=== PATIENT | male | born 1970 | race African-American/Black ===

== ENCOUNTER 2021-03-02 09:46 | Emergency (ER) | payer OTHER ==
--- NOTE | 2021-03-02 10:16 | EDM.PDOC ---
ED HPI GENERAL MEDICAL PROBLEM - General Chief Complaint: Abdominal Pain Stated Complaint: HIGH BP/ABDOMINAL PAIN/SOB Time Seen by Provider: 03/02/21 10:14 Source of Information: Reports: Patient History Limitations: Reports: No Limitations - History of Present Illness INITIAL COMMENTS - FREE TEXT/NARRATIVE: 50-year-old male presents to the ED not feeling well since having the [employer]J COVID- 19 vaccination 4 days ago. He feels mildly short of breath but feels marked abdominal bloating and distention with need to burp and belch to get any discomfort. Not passing air per rectum near as regularly as normal. He did have a small formed bowel movement without blood last evening. He denies drinking alcohol recently he quit several months ago. He stopped smoking couple months ago as well. He was seen at the walk-in clinic and identified to have a markedly elevated blood pressure and this was part of the reason for having to attend the ED as well. He reports he used to be on blood pressure medications but stopped them about 8 months ago. He denies cough or sputum production. He did not ever have COVID-19 diagnosed. Denies fever or chills. His right arm ached for a day after having the [employer] given. No previous abdominal surgery. Onset: Gradual Onset Date: 03/01/21 Duration: Day(s):, Getting Worse Location: Reports: Abdomen (Diffuse abdominal bloat with occasional sharp stabbing) Quality: Reports: Ache (, cramping pains.), Sharp, Stabbing, Other (Colicky component to the pain.) Improves with: Reports: None ( Is mostly periumbilical.) Worsens with: Reports: Other Context: Denies: Activity (Worsens if he tries to eat or drink much.), Exercise, Lifting, Sick Contact, Trauma, Other Associated Symptoms: Reports: Shortness of Breath. Denies: Confusion, Chest Pain, Cough, cough w sputum, Diaphoresis, Fever/Chills, Headaches, Loss of Appetite, Malaise, Nausea/Vomiting, Rash, Seizure, Syncope, Weakness Treatments ORTHOPAEDIC SURGEON: Reports: Other (see below) (None.) Abdomen Pain Score (Numeric/FACES): 4 - Related Data Allergies Allergy/AdvReac Type Severity Reaction Status Date / Time No Known Allergies Allergy Verified 03/02/21 09:59 Home Meds: Home Meds Furosemide [Lasix] 40 mg PO DAILY #30 tablet 03/02/21 [Rx] Valsartan [Diovan] 320 mg PO DAILY #30 tablet 03/02/21 [Rx] amLODIPine Besylate [Amlodipine Besylate] 10 mg PO DAILY #30 tablet 03/02/21 [Rx] Past Medical History - Past Health History Medical/Surgical History: Denies Medical/Surgical History Cardiovascular History: Reports: Hypertension Social & Family History - Tobacco Use Tobacco Use Status *Q: Former Tobacco User (Patient quit 3 months ago) Used Tobacco, but Quit: Yes Month/Year Tobacco Last Used: 3 months ago - Caffeine Use Caffeine Use: Reports: Coffee - Recreational Drug Use Recreational Drug Use: No - Living Situation & Occupation Living situation: Reports: Single Occupation: Employed ED ROS GENERAL - Review of Systems Review Of Systems: See Below Constitutional: Reports: Decreased Appetite. Denies: Fever, Chills, Malaise, Weakness, Fatigue, Weight Loss HEENT: Reports: No Symptoms Respiratory: Reports: Shortness of Breath. Denies: Wheezing, Pleuritic Chest Pain, Cough, Sputum, Hemoptysis, Other Cardiovascular: Reports: Blood Pressure Problem, Dyspnea on Exertion. Denies: Chest Pain, Claudication, Edema, Lightheadedness, Orthopnea, Palpitations Endocrine: Reports: Fatigue GI/Abdominal: Reports: Abdominal Pain. Denies: Diarrhea, Distension, Flatus, Hematemesis, Hematochezia, Melena, Nausea, Stool Incontinence, Vomiting, Other : Reports: No Symptoms Musculoskeletal: Reports: No Symptoms Skin: Reports: No Symptoms Neurological: Reports: No Symptoms Psychiatric: Reports: No Symptoms Hematologic/Lymphatic: Reports: No Symptoms Immunologic: Reports: No Symptoms ED EXAM, GI/ABD - Physical Exam Exam: See Below Exam Limited By: No Limitations General Appearance: Alert, WD/WN, No Apparent Distress, Other (Temperature is 36.2 degrees. Heart rate 118 and sinus a sinus tachycardia respiratory to 13 with O2 sats of 96% room air BP markedly elevated at 169/135. It is subsequently come down to 158/115) Eyes: Bilateral: Normal Appearance (No scleral icterus or blepharal pallor.) Throat/Mouth: Normal Inspection, Normal Lips, Normal Oropharynx Head: Atraumatic, Normocephalic Neck: Normal Inspection, Supple, Non-Tender, Full Range of Motion. No: Carotid Bruit, Lymphadenopathy (R) Respiratory/Chest: No Respiratory Distress, Lungs Clear, Normal Breath Sounds, No Accessory Muscle Use. No: Rales, Rhonchi, Wheezing Cardiovascular: No Edema, No Gallop, No Murmur, No Rub, Tachycardia (Has tachy cardia at rest. Presumably due to anxiety) GI/Abdominal Exam: Soft (The abdomen is diffusely distended and tympany to percussion.), Non-Tender, No Organomegaly, Distended, Abnormal Bowel Sounds (Bowel sounds are very active in all 4 quadrants of the abdomen.), Other (No peritoneal signs.). No: Guarding, Rigid, Rebound (Male) Exam: No Hernia Back Exam: Normal Inspection, Full Range of Motion. No: CVA Tenderness (L), CVA Tenderness (R) Extremities: Normal Inspection, Normal Range of Motion, Non-Tender, No Pedal Edema Neurological: Alert, Oriented, CN II-XII Intact, Normal Cognition Psychiatric: Normal Affect, Normal Mood Skin Exam: Warm, Dry, Intact, Normal Color, No Rash #1 Interpretation EKG Date: 03/02/21 Time: 10:04 Rhythm: Other (Sinus tachycardia) Rate (Beats/Min): 115 Machias: LAD-Left Machias Deviation (-59 degrees) P-Wave: Enlarged (Left atrial hypertrophy) QRS: Other (Left ventricular hypertrophy. Near Q waves in leads II, III and aVF consider old anteroseptal myocardial infarction) ST-T: Other (T wave inversion in leads I and aVL flattening in V2. Diffuse repolarization abnormality) QT: Prolonged (Mildly prolonged) EKG Interpretation Comments: Abnormal ECG #2 Interpretation EKG Date: 03/02/21 Time: 13:03 Rhythm: Other (Sinus tachycardia) Rate (Beats/Min): 106 Machias: LAD-Left Machias Deviation (-58 degrees) P-Wave: Enlarged (Left atrial hypertrophy) QRS: Other (New Q waves leads II, III and aVF consider old inferior wall myocardial infarction. Initial poor R wave progression consider old anteroseptal myocardial infarction) QT: Prolonged (Moderately prolonged) EKG Interpretation Comments: Abnormal ECG Course - Vital Signs Last Recorded V/S: Last Vital Signs Temp 36.2 C 03/02/21 09:53 Pulse 106 H 03/02/21 12:56 Resp 13 03/02/21 09:53 BP 155/113 H 03/02/21 12:56 Pulse Ox 95 03/02/21 12:56 - Orders/Labs/Meds Orders: Active Orders 24 hr Category Date Time Status EKG 12 Lead [EKG Documentation Completion] [RC] STAT Care 03/02/21 09:57 Active EKG Documentation Completion [RC] STAT Care 03/02/21 12:54 Active Peripheral IV Care [RC] . DIRECTED Care 03/02/21 10:35 Active CULTURE URINE [RM] Stat Lab 03/02/21 10:45 Received Dextrose 5%-0.9% NaCl [Dextrose 5%-Normal Saline] 1,000 Med 03/02/21 12:30 Active ml IV ASDIRECTED Sodium Chloride 0.9% [Normal Saline] 45 ml Med 03/02/21 12:45 Active IV ASDIRECTED Sodium Chloride 0.9% [Saline Flush] Med 03/02/21 10:35 Active 10 ml FLUSH ASDIRECTED PRN Sodium Chloride 0.9% [Saline Flush] Med 03/02/21 12:32 Active 10 ml FLUSH ONETIME PRN Peripheral IV Insertion Adult [OM.PC] Stat Oth 03/02/21 10:35 Ordered Medication Orders Dextrose/Sodium Chloride (Dextrose 5%-Normal Saline) 1,000 mls @ 100 mls/hr IV [facility]IRECTED [facility] Last Admin: 03/02/21 12:54 Dose: 100 mls/hr Documented by: IVÁN Sodium Chloride (Normal Saline) 45 mls @ 40 mls/hr IV ASDIRECTED [facility] Last Admin: 03/02/21 12:54 Dose: 40 mls/hr Documented by: AMIE Sodium Chloride (Sodium Chloride 0.9% 10 Ml Syringe) 10 ml FLUSH ASDIRECTED PRN PRN Reason: Keep Vein Open Last Admin: 03/02/21 10:42 Dose: 10 ml Documented by: ERIN Sodium Chloride (Sodium Chloride 0.9% 10 Ml Syringe) 10 ml FLUSH ONETIME PRN PRN Reason: Keep Vein Open Last Admin: 03/02/21 12:54 Dose: 10 ml Documented by: AMIE Labs: Laboratory Tests 03/02/21 03/02/21 03/02/21 Range/Units 10:04 10:04 10:04 WBC 8.29 (4.23-9.07) K/mm3 RBC 5.92 (4.63-6.08) M/mm3 Hgb 16.7 (13.7-17.5) gm/dl Hct 50.9 (40.1-51.0) % MCV 86.0 D (79.0-92.2) fl MCH 28.2 (25.7-32.2) pg MCHC 32.8 (32.2-35.5) g/dl RDW Std Deviation 45.1 H (35.1-43.9) fL Plt Count 262 D (163-337) K/mm3 MPV 11.8 (9.4-12.3) fl Neut % (Auto) 59.7 (34.0-67.9) % Lymph % (Auto) 28.2 (21.8-53.1) % [place] % (Auto) 10.9 (5.3-12.2) % Eos % (Auto) 0.5 L (0.8-7.0) Baso % (Auto) 0.2 (0.1-1.2) % Neut # (Auto) 4.95 (1.78-5.38) K/mm3 Lymph # (Auto) 2.34 (1.32-3.57) K/mm3 [place] # (Auto) 0.90 H (0.30-0.82) K/mm3 Eos # (Auto) 0.04 (0.04-0.54) K/mm3 Baso # (Auto) 0.02 (0.01-0.08) K/mm3 D-Dimer, Quantitative (0.19-0.50) mg/L Sodium 142 (136-145) mEq/L Potassium 3.7 (3.5-5.1) mEq/L Chloride 104 (98-107) mEq/L Carbon Dioxide 24 (21-32) mEq/L Anion Gap 17.7 H (5-15) BUN 20 H (7-18) mg/dL Creatinine 1.3 (0.7-1.3) mg/dL Est Cr Clr Drug Dosing 67.98 mL/min Estimated GFR (MDRD) > 60 (>60) mL/min BUN/Creatinine Ratio 15.4 (14-18) Glucose 148 H (74-106) mg/dL Calcium 9.5 (8.5-10.1) mg/dL Magnesium 1.8 (1.8-2.4) mg/dl Total Bilirubin 2.2 H (0.2-1.0) mg/dL AST 84 H (15-37) U/L ALT 165 H (16-63) U/L Alkaline Phosphatase 44 L (46-116) U/L Lactate Dehydrogenase 279 H (85-227) U/L CK-MB (CK-2) (0-3.6) ng/ml Troponin I 0.088 H* (0.00-0.056) ng/mL NT-Pro-B Natriuret Pep (0-125) pg/mL Total Protein 7.9 (6.4-8.2) g/dl Albumin 3.9 (3.4-5.0) g/dl Globulin 4.0 gm/dL Albumin/Globulin Ratio 1.0 (1-2) Lipase 77 (73-393) U/L Urine Color (Yellow) Urine Appearance (Clear) Urine pH (5.0-8.0) Ur Specific [place] (1.005-1.030) Urine Protein (Negative) Urine Glucose (UA) (Negative) Urine Ketones (Negative) Urine Occult Blood (Negative) Urine Nitrite (Negative) Urine Bilirubin (Negative) Urine Urobilinogen (0.2-1.0) Ur Leukocyte Esterase (Negative) U Hyaline Cast (Auto) (0-5) /lpf Urine RBC (0-5) /hpf Urine WBC (0-5) /hpf Ur Epithelial Cells (0-5) /hpf Urine Bacteria (FEW) /hpf Broad Casts (0-5) /hpf Urine Mucus (FEW) /hpf SARS-CoV-2 RNA (GUERA) (NEGATIVE) 03/02/21 03/02/21 03/02/21 Range/Units 10:04 10:04 10:45 WBC (4.23-9.07) K/mm3 RBC (4.63-6.08) M/mm3 Hgb (13.7-17.5) gm/dl Hct (40.1-51.0) % MCV (79.0-92.2) fl MCH (25.7-32.2) pg MCHC (32.2-35.5) g/dl RDW Std Deviation (35.1-43.9) fL Plt Count (163-337) K/mm3 MPV (9.4-12.3) fl Neut % (Auto) (34.0-67.9) % Lymph % (Auto) (21.8-53.1) % [place] % (Auto) (5.3-12.2) % Eos % (Auto) (0.8-7.0) Baso % (Auto) (0.1-1.2) % Neut # (Auto) (1.78-5.38) K/mm3 Lymph # (Auto) (1.32-3.57) K/mm3 [place] # (Auto) (0.30-0.82) K/mm3 Eos # (Auto) (0.04-0.54) K/mm3 Baso # (Auto) (0.01-0.08) K/mm3 D-Dimer, Quantitative (0.19-0.50) mg/L Sodium (136-145) mEq/L Potassium (3.5-5.1) mEq/L Chloride (98-107) mEq/L Carbon Dioxide (21-32) mEq/L Anion Gap (5-15) BUN (7-18) mg/dL Creatinine (0.7-1.3) mg/dL Est Cr Clr Drug Dosing mL/min Estimated GFR (MDRD) (>60) mL/min BUN/Creatinine Ratio (14-18) Glucose (74-106) mg/dL Calcium (8.5-10.1) mg/dL Magnesium (1.8-2.4) mg/dl Total Bilirubin (0.2-1.0) mg/dL AST (15-37) U/L ALT (16-63) U/L Alkaline Phosphatase (46-116) U/L Lactate Dehydrogenase (85-227) U/L CK-MB (CK-2) 1.1 (0-3.6) ng/ml Troponin I (0.00-0.056) ng/mL NT-Pro-B Natriuret Pep 3479 H (0-125) pg/mL Total Protein (6.4-8.2) g/dl Albumin (3.4-5.0) g/dl Globulin gm/dL Albumin/Globulin Ratio (1-2) Lipase (73-393) U/L Urine Color Dark yellow (Yellow) Urine Appearance Clear (Clear) Urine pH 5.5 (5.0-8.0) Ur Specific [place] > or = 1.030 (1.005-1.030) Urine Protein 3+ H (Negative) Urine Glucose (UA) Negative (Negative) Urine Ketones 3+ H (Negative) Urine Occult Blood 2+ H (Negative) Urine Nitrite Negative (Negative) Urine Bilirubin 1+ H (Negative) Urine Urobilinogen 0.2 (0.2-1.0) Ur Leukocyte Esterase Negative (Negative) U Hyaline Cast (Auto) 5-10 H (0-5) /lpf Urine RBC 0-5 (0-5) /hpf Urine WBC 0-5 (0-5) /hpf Ur Epithelial Cells Not seen (0-5) /hpf Urine Bacteria Moderate H (FEW) /hpf Broad Casts 0-5 (0-5) /hpf Urine Mucus Moderate H (FEW) /hpf SARS-CoV-2 RNA (GUERA) (NEGATIVE) 03/02/21 03/02/21 03/02/21 Range/Units 11:10 11:55 13:14 WBC (4.23-9.07) K/mm3 RBC (4.63-6.08) M/mm3 Hgb (13.7-17.5) gm/dl Hct (40.1-51.0) % MCV (79.0-92.2) fl MCH (25.7-32.2) pg MCHC (32.2-35.5) g/dl RDW Std Deviation (35.1-43.9) fL Plt Count (163-337) K/mm3 MPV (9.4-12.3) fl Neut % (Auto) (34.0-67.9) % Lymph % (Auto) (21.8-53.1) % [place] % (Auto) (5.3-12.2) % Eos % (Auto) (0.8-7.0) Baso % (Auto) (0.1-1.2) % Neut # (Auto) (1.78-5.38) K/mm3 Lymph # (Auto) (1.32-3.57) K/mm3 [place] # (Auto) (0.30-0.82) K/mm3 Eos # (Auto) (0.04-0.54) K/mm3 Baso # (Auto) (0.01-0.08) K/mm3 D-Dimer, Quantitative 5.64 H (0.19-0.50) mg/L Sodium (136-145) mEq/L Potassium (3.5-5.1) mEq/L Chloride (98-107) mEq/L Carbon Dioxide (21-32) mEq/L Anion Gap (5-15) BUN (7-18) mg/dL Creatinine (0.7-1.3) mg/dL Est Cr Clr Drug Dosing mL/min Estimated GFR (MDRD) (>60) mL/min BUN/Creatinine Ratio (14-18) Glucose (74-106) mg/dL Calcium (8.5-10.1) mg/dL Magnesium (1.8-2.4) mg/dl Total Bilirubin (0.2-1.0) mg/dL AST (15-37) U/L ALT (16-63) U/L Alkaline Phosphatase (46-116) U/L Lactate Dehydrogenase (85-227) U/L CK-MB (CK-2) (0-3.6) ng/ml Troponin I 0.083 H* (0.00-0.056) ng/mL NT-Pro-B Natriuret Pep (0-125) pg/mL Total Protein (6.4-8.2) g/dl Albumin (3.4-5.0) g/dl Globulin gm/dL Albumin/Globulin Ratio (1-2) Lipase (73-393) U/L Urine Color (Yellow) Urine Appearance (Clear) Urine pH (5.0-8.0) Ur Specific [place] (1.005-1.030) Urine Protein (Negative) Urine Glucose (UA) (Negative) Urine Ketones (Negative) Urine Occult Blood (Negative) Urine Nitrite (Negative) Urine Bilirubin (Negative) Urine Urobilinogen (0.2-1.0) Ur Leukocyte Esterase (Negative) U Hyaline Cast (Auto) (0-5) /lpf Urine RBC (0-5) /hpf Urine WBC (0-5) /hpf Ur Epithelial Cells (0-5) /hpf Urine Bacteria (FEW) /hpf Broad Casts (0-5) /hpf Urine Mucus (FEW) /hpf SARS-CoV-2 RNA (GUERA) Negative (NEGATIVE) Meds: Medications Generic Name Dose Route Start Last Admin Trade Name Freq PRN Reason Stop Dose Admin Dextrose/Sodium Chloride 1,000 mls @ 100 mls/hr 03/02/21 12:30 03/02/21 12:54 Dextrose 5%-Normal Saline IV 100 mls/hr ASDIRECTED MIGUEL ANGEL Administration Sodium Chloride 45 mls @ 40 mls/hr 03/02/21 12:45 03/02/21 12:54 Normal Saline IV 40 mls/hr ASDIRECTED MIGUEL ANGEL Administration Sodium Chloride 10 ml 03/02/21 10:35 03/02/21 10:42 Sodium Chloride 0.9% 10 Ml Syringe FLUSH 10 ml ASDIRECTED PRN Administration Keep Vein Open Sodium Chloride 10 ml 03/02/21 12:32 03/02/21 12:54 Sodium Chloride 0.9% 10 Ml Syringe FLUSH 10 ml ONETIME PRN Administration Keep Vein Open Discontinued Medications Generic Name Dose Route Start Last Admin Trade Name Freq PRN Reason Stop Dose Admin Amlodipine Besylate 10 mg 03/02/21 11:48 03/02/21 11:56 Amlodipine 10 Mg Tab PO 03/02/21 11:49 10 mg ONETIME ONE Administration Iopamidol 100 ml 03/02/21 12:32 03/02/21 12:54 Iopamidol 755 Mg/Ml 100 Ml Bottle IVPUSH 03/02/21 12:33 100 ml ONETIME ONE Administration Magnesium Citrate 210 ml 03/02/21 14:04 03/02/21 14:15 Magnesium Citrate Solution 296 Ml Bottle PO 03/02/21 14:05 296 ml ONETIME ONE Administration - Radiology Interpretation Free Text/Narrative:: 50-year-old male of [place] descent presents to the ED after attending the walk-in clinic at [place] this morning. He presented there after not feeling well since receiving the [employer] COVID-19 vaccine 4 days ago. Feels diffusely abdominally bloated and distended with only relief with burping and belching. Did have a small bowel movement last night. Feels he is not passing as much flatus as normal. No room to eat feels a full right away. Denies any nausea vomiting. No fever or chills. He feels subjectively short of breath which I feel likely is due to his abdominal distention limiting his ability to fully take a full deep breath. He presents with sinus tachycardia and markedly elevated blood pressure. He reports he was on blood pressure medications 8 months ago but stopped them at that time. Denies any weight loss or gain. Exam reveals him to be diffusely tympany to percussion in the abdomen and indeed markedly bloated. Soft palpation with no localized tenderness or peritoneal signs. No surgical scars. Lungs are clear to osseous percussion without any adventitial sounds. Plan he will have routine labs performed as he is going to need antihypertensive medication. We will check on renal function primarily. He will have an x-ray of his chest and 1 view of the abdomen performed. - Re-Assessments/Exams Free Text/Narrative Re-Assessment/Exam: 03/02/21 11:24 Total white count is 8.29. Differential is 60% neutrophils. Hemoglobin is 16.7 with hematocrit of 50.9 suggesting some degree of hemoconcentration platelet count 262,000 03/02/21 11:37 chest x-ray done portably reveals heart is mildly enlarged a mild cardiomegaly. Tortuous thoracic aorta is seen. Lungs are clear with no acute parenchymal changes. No acute osseous findings appreciated. KUB reveals scattered bowel gas pattern with several mildly dilated loops of small bowel in the central abdomen without any air-fluid levels. There is increased stool in the cecum and the rectal vault. Bony structures are otherwise unremarkable. No abnormal calcifications or soft tissue abnormalities noted. 03/02/21 11:38 Urinalysis shows dark yellow urine with 3+ proteinuria 3+ ketones and 2+ occult blood. 1+ bilirubin moderate bacteria noted. Urine culture will be ordered. 03/02/21 11:43 Sodium is 142 with a potassium of 3.7. Chloride 104 with a bicarb of 24. Anion gap is mildly elevated at 17.7. BUN is 20 with a creatinine of 1.3 and a GFR greater than 60. Glucose is 148. Calcium is 9.5 bilirubin is mildly elevated at 2.2 with an AST of 84 and an ALT of 165 alkaline phosphatase is low at 44. Troponin I is 0.088. Total protein is 7.9 albumin fraction 3.9. D-dimer returned elevated at 5.64. These signs are suggestive of possible underlying COVID-19 illness. COVID-19 screen will be done. Blood pressure is down to 150/102. I am going going to give him amlodipine 10 mg by mouth for blood pressure control. 03/02/21 12:28 BNP is elevated at 3479 .Magnesium is 1.8. Plan therefore is to proceed with CT pulmonary angiogram to rule out DVT. His oxygen saturations have been 94 to 100% on room air. 03/02/21 12:53 COVID-19 screen came back negative. He will therefore have r epeat cardiac markers i.e. troponin I at 1300 hrs. I will also repeat his ECG. 03/02/21 13:00 CT pulmonary angiogram has been completed and it reveals moderate cardiomegaly. No pleural effusions. There is no definitive evidence of pulmonary emboli. Repeat ECG is essentially unchanged from the first. Shows sinus tachycardia at 106/min. Initial poor R wave progression giving some consideration to an old anteroseptal myocardial infarction. Likely left ventricular hypertrophy pattern. There is definite left atrial hypertrophy. Left axis deviation of -50 degrees with a left bundle branch block pattern. Near Q waves in leads II, III and aVF consider old inferior wall myocardial infarction. QTC is moderately prolonged abnormal ECG. CK-MB fraction is 1.1. 03/02/21 13:[address] pulmonary angiogram is now available from the radiologist. Pulmonary arteries are well opacified. No filling defects are seen to indicate pulmonary medicine. Thoracic aorta shows no aneurysm. Mediastinal lymph nodes are seen most likely within normal limits. Heart is enlarged normal no pericardial thickening is seen. There is a very minimal right-sided pleural effusion. Minimal atelectasis is seen within the left lung base. Lungs are otherwise clear with no acute parenchymal changes. Bone window settings were reviewed which shows minimal degenerative changes within the spine. No acute osseous abnormalities appreciated. 03/02/21 14:01 Repeat troponin I assay came back lower than the first at 0.083. Therefore elevated troponin is secondary to congestive heart failure. The patient will be started on Lasix 40 mg once daily every morning and valsartan 320 mg once daily in the morning. Amlodipine 10 mg at at bedtime for hypertension control. His heart is markedly enlarged and he needs follow-up with a windows application packager for an echocardiogram and follow-up. He needs to establish a primary care provider here in [place]. I will write a prescription for amlodipine 10 mg at at bedtime. Valsartan 320 mg once daily in the morning and Lasix 40 mg once daily every morning. He will take his first Lasix when he gets back to kill deer today. He could take his valsartan today as well. I have suggested the patient see if he can get in to see Dr. Alan Shaffer at the [facility] whom can follow him along in regards to his hypertension and congestive heart failure and arrange for cardiology consultation as he needs an echocardiogram and perhaps an angiogram. He quit smoking 3 months ago. Blood pressure at the time of discharge is down to 150/100. Departure - Departure Time of Disposition: 14:03 Disposition: Home, Self-Care 01 Condition: Fair Clinical Impression: Mild congestive heart failure, Uncontrolled stage 2 hypertension - Discharge Information *PRESCRIPTION DRUG MONITORING PROGRAM REVIEWED*: Not Applicable *COPY OF PRESCRIPTION DRUG MONITORING REPORT IN PATIENT MAGUI: Not Applicable Prescriptions: amLODIPine Besylate [Amlodipine Besylate] 10 mg PO DAILY #30 tablet Valsartan [Diovan] 320 mg PO DAILY #30 tablet Furosemide [Lasix] 40 mg PO DAILY #30 tablet Instructions: Heart Failure, Self Care, [id number], Constipation, Adult, [id number], Heart Failure Action Plan, Managing Your Hypertension Referrals: PCP,None [Primary Care Provider] - Forms: ED Department Discharge Additional Instructions: Evaluation in the emergency room this morning in regards to feeling short of breath as well as experiencing abdominal distention and bloating. You were sent from the clinic to the emergency department because of markedly elevated blood pressure on their initial findings. Examination and follow-up does indeed reveal that your blood pressure is uncontrolled and is causing significant wear and tear on your heart causing mild to moderate congestive heart failure. This resulted in elevation of heart markers suggestive of possible heart attack but heart attack was ruled out and the elevated markers are secondary to heart failure. Your D-dimer assay also came back elevated suggesting possible blood clot in your lungs and CT pulmonary angiogram was therefore performed with no findings of blood clots in your lungs. Treatment is regaining control of your blood pressure with medication. You will need to take a medication called valsartan 320 mg once daily every morning with Lasix 40 mg once daily to help reduce the amount of fluid that is being retained primarily in your lungs making you short of breath. You will also need to take amlodipine 10 mg at bedtime for blood pressure control. You need to see a windows application packager and I would suggest arranging follow-up with Dr. Alan Shaffer physician at [facility] and he will arrange cardiology consultation and follow you along as far as her blood pressure goes and heart failure issues. Please call Dr. Shaffer's office at [phone] to arrange an appointment. This should be done sometime within the next week to 10 days so that he can set you up for cardiology consultation either here or in [place]. Suggest taking a dose of Lasix 40 mg by mouth and valsartan 320 mg when you get back to kill deer today. Take Citroma 7 ounces by mouth mixed with 6 ounces of juice by mouth once which will provide bowel cleanse and help get rid of a lot of the abdominal gas and bloat feeling. It usually starts to work in 1 to 2 hours and does not cause any cramps. Sepsis Event Note (ED) - Evaluation Sepsis Screening Result: No Definite Risk - Focused Exam Vital Signs: Vital Signs Temp Pulse Resp BP BP Pulse Ox 03/02/21 12:56 106 H 155/113 H 95 03/02/21 12:00 100 150/116 H 98 03/02/21 11:56 150/115 H 03/02/21 09:53 36.2 C 118 H 13 169/135 H 96 - My Orders Last 24 Hours: My Active Orders 03/02/21 09:57 EKG 12 Lead [EKG Documentation Completion] [RC] STAT 03/02/21 10:35 Peripheral IV Care [RC] . DIRECTED Sodium Chloride 0.9% [Saline Flush] 10 ml FLUSH ASDIRECTED PRN Peripheral IV Insertion Adult [OM.PC] Stat 03/02/21 10:45 CULTURE URINE [RM] Stat 03/02/21 12:30 Dextrose 5%-0.9% NaCl [Dextrose 5%-Normal Saline] 1,000 ml IV ASDIRECTED 03/02/21 12:32 Sodium Chloride 0.9% [Saline Flush] 10 ml FLUSH ONETIME PRN 03/02/21 12:45 Sodium Chloride 0.9% [Normal Saline] 45 ml IV ASDIRECTED 03/02/21 12:54 EKG Documentation Completion [RC] STAT - Assessment/Plan Last 24 Hours: My Active Orders 03/02/21 09:57 EKG 12 Lead [EKG Documentation Completion] [RC] STAT 03/02/21 10:35 Peripheral IV Care [RC] . DIRECTED Sodium Chloride 0.9% [Saline Flush] 10 ml FLUSH ASDIRECTED PRN Peripheral IV Insertion Adult [OM.PC] Stat 03/02/21 10:45 CULTURE URINE [RM] Stat 03/02/21 12:30 Dextrose 5%-0.9% NaCl [Dextrose 5%-Normal Saline] 1,000 ml IV ASDIRECTED 03/02/21 12:32 Sodium Chloride 0.9% [Saline Flush] 10 ml FLUSH ONETIME PRN 03/02/21 12:45 Sodium Chloride 0.9% [Normal Saline] 45 ml IV ASDIRECTED 03/02/21 12:54 EKG Documentation Completion [RC] STAT
[2021-03-02] MEDS ORDERED: Sodium Chloride 0.9% 10 ML Syringe FLUSH PRN ×2 (10:35→12:32)
--- NOTE | 2021-03-02 11:35 | CR ---
Abdomen: Supine view of the abdomen was obtained. Comparison: No previous abdominal x-ray. Bowel gas pattern is normal. No abnormal calcifications or soft tissue abnormality is seen. Bony structures are unremarkable. Impression: 1. Nothing acute is seen on supine abdominal x-ray. Diagnostic code #1
--- NOTE | 2021-03-02 11:35 | CR ---
Chest: Frontal view of the chest was obtained. Comparison: No previous study. Heart is enlarged. Tortuous thoracic aorta is seen. Lungs are clear with no acute parenchymal change. No acute osseous finding is appreciated. Impression: 1. Cardiomegaly. 2. Nothing acute is otherwise seen on frontal chest x-ray. Diagnostic code #2
[2021-03-02] MEDS ORDERED: amLODIPine 10 MG Tab PO ONE (11:48)
[2021-03-02] MEDS ORDERED: Dextrose 5%-0.9% NaCl 1,000 ML IV SCH (12:30)
[2021-03-02] MEDS ORDERED: Iopamidol 755 Mg/ML 100 ML Bottle IVPUSH ONE (12:32)
[2021-03-02] MEDS ORDERED: Sodium Chloride 0.9% 45 ML IV SCH (12:45)
--- NOTE | 2021-03-02 13:11 | CT ---
CT chest Technique: Multiple axial sections through the chest were obtained. Intravenous contrast was utilized. Study has been performed as a pulmonary angiogram protocol. Findings: Pulmonary arteries are well opacified. No filling defects are seen to indicate pulmonary embolism. Thoracic aorta shows no aneurysm. Mediastinal lymph nodes are seen most likely within normal limits. Heart is enlarged. No pericardial thickening is seen. Small right-sided pleural effusion is noted. Minimal atelectasis is seen within left lung base. Lungs otherwise are clear with no acute parenchymal change. Bone window settings were reviewed which shows minimal degenerative change within the spine. No acute osseous abnormality is appreciated. Impression: 1. Cardiomegaly and small right-sided pleural effusion. These findings are suspicious for mild CHF. 2. No findings of pulmonary embolism. 3. No other acute abnormality is appreciated. Diagnostic code #3
[2021-03-02] MEDS ORDERED: Magnesium Citrate Solution 296 ML Bottle PO ONE (14:04)
== END 2021-03-02 14:33 | disposition home or self-care (01) ==
LOC: JD.ED 09:46
DX: I11.0 Hypertensive heart disease with heart failure (principal); I50.9 Heart failure, unspecified; R10.33 Periumbilical pain; R00.0 Tachycardia, unspecified; Z87.891 Personal history of nicotine dependence; Z79.899 Other long term (current) drug therapy; Z20.822 Contact with and (suspected) exposure to COVID-19
CPT/HCPCS: 36415; 71045; 71275; 74018; 80053; 81001; 82553; 83615; 83690; 83735; 83880; 84484; 85025; 85379; 87086; 87635; 93005; 99285; A9270; J7042; Q9967; 93010; 99284; U0002